=== PATIENT | male | born 1970 | race Caucasian/White ===

== ENCOUNTER → 2019-04-06 14:38 | Outpatient (CLI) | payer OTHER, SELFPAY ==
[2019-02-17 11:20] VITALS: BMI 24.8
[2019-04-06 16:54] LABS: Amphetamine Urine VISTA NEGATIVE (<1000 ng/mL); Barbiturate Urine VISTA NEGATIVE (< 200 ng/mL); Benzodiazepine Urine VISTA NEGATIVE (< 200 ng/mL); Cocaine Urine VISTA NEGATIVE (< 300 ng/mL); Ecstacy Urine VISTA NEGATIVE (< 500 ng/mL); Methadone Urine VISTA NEGATIVE (< 300 ng/mL); PCP Urine VISTA NEGATIVE (< 25 ng/mL); THC Urine VISTA NEGATIVE (< 50 ng/mL); Vista UDS pH Range 7
== END ==
PROVIDERS: Family Provider Family Medicine; PCP Family Medicine; Referring Provider Family Medicine; Visit Provider Family Medicine
DX: F98.8 Other specified behavioral and emotional disorders with onset usually occurring in childhood and adolescence (principal)
CPT/HCPCS: 80307

== ENCOUNTER → 2020-05-18 | Outpatient (CLI) | payer OTHER, SELFPAY ==
[2019-06-15 12:27] VITALS: BMI 24.8
== END | disposition home or self-care (01) ==
LOC: LABSPEC 09:48
PROVIDERS: Visit Provider Dermatology
DX: B35.4 Tinea corporis (principal)
CPT/HCPCS: 87101

== ENCOUNTER → 2021-05-11 10:02 | Outpatient (CLI) | payer OTHER, SELFPAY ==
--- NOTE | 2021-05-11 10:07 | US_ITS ---
INDICATION: THYROMEGALY EXAMINATION: Ultrasound US Thyroid (eg thyroid, parathyroid, parotid) TECHNIQUE: Wan scale and color doppler imaging was performed of the thyroid gland. COMPARISON: None. FINDINGS: RIGHT THYROID LOBE: Mild prominence of the right lobe of the thyroid gland is seen. The right lobe of the thyroid gland demonstrates homogenous echogenicity, unremarkable vascularity with no evidence of masses or nodules. The right lobe of the thyroid gland measures 4.8 x 2.0 x 1.8 cm. LEFT THYROID LOBE: Mild prominence of the left lobe of the thyroid gland is seen. The left lobe of the thyroid gland demonstrates homogenous echogenicity, unremarkable vascularity with no evidence of masses or nodules. The left lobe of the thyroid gland measures 4.7 x 1.7 x 1.6 cm. ISTHMUS: Unremarkable echogenicity of the isthmus. The isthmus measures 0.3 cm in AP diameter.. No thyroid nodules are present. IMPRESSION: Unremarkable thyroid echogenicity with no evidence of masses. Electronically Signed: Jai Bedoya MD at 16:07 EST Tel , Service support , US/Thyroid
== END ==
PROVIDERS: PCP Family Medicine; Referring Provider Family Medicine; Visit Provider Family Medicine
DX: E01.0 Iodine-deficiency related diffuse (endemic) goiter (principal)
CPT/HCPCS: 76536

== ENCOUNTER 2021-11-18 12:46 | Emergency (ER) | payer OTHER, SELFPAY ==
[2021-11-18 12:47] VITALS: BP 134/86; PULSE 71; RESP 14; TEMP 36.6; O2SAT 98; BMI 24.4
--- NOTE | 2021-11-18 12:56 | RAD_ITS ---
EXAM: XR RIGHT RIBS AND AP CHEST, 3 OR MORE VIEWS CLINICAL INDICATION: right rib pain TECHNIQUE: Frontal and oblique views of the right ribs and frontal view of the chest. This report was created using [employer] report [employer] technology. COMPARISON: None. FINDINGS: LUNGS AND PLEURAL SPACES: Unremarkable. No consolidation or edema. No pneumothorax. No effusion. HEART: Unremarkable. Cardiac silhouette not enlarged. MEDIASTINUM: Central airways and mediastinal contour are unremarkable. BONES/JOINTS: Unremarkable. No evidence of displaced rib fractures. RAD/Ribs Uni Min 3V w/PA Chest IMPRESSION: Negative chest and right ribs series. Electronically Signed: Michael Bush MD at 13:41 EDT ,
--- NOTE | 2021-11-18 13:05 | EDS_ITS ---
HPI <SERGIO Bryant - Last Filed: 11/18/21 14:10> History of Present Illness Chief Complaint: Other, Pain/Inj Narrative Narrative: Just prior to arrival patient slipped off his truck and fell onto his right side of ribs onto a piece of metal bar. He states it was about 2 feet. There was no head injury or LOC. He is taking shallow breaths due to pain but has no difficulty breathing. No aspirin or blood thinners PFSH <SERGIO Bryant - Last Filed: 11/18/21 14:10> [facility] Medical History (Updated 11/18/21 @ 13:23 by SERGIO Bryant) ADD (attention deficit disorder) Home Medications cholecalciferol (vitamin D3) 50 mcg (2,000 unit) capsule 50 mcg PO DAILY 08/25/21 [History Last Taken Unknown] dextroamphetamine-amphetamine ER 20 mg 24hr capsule,extend release (Adderall XR) 20 mg PO DAILY 08/25/21 [History Last Taken Unknown] glucosamine XEk-uuv-vqoxtmemspa 500 mg-167 mg-400 mg tablet 1 tab PO TID 08/25/21 [History Last Taken Unknown] lactobacillus combination no.4 3 billion cell capsule (Probiotic) 3,000 mmu cells PO DAILY 08/25/21 [History Last Taken Unknown] multivitamin 1 tab PO DAILY 08/25/21 [History Last Taken Unknown] saw palmetto fruit extract-zinc picolinate 160 mg-15 mg capsule (Saw Friona Extract (with zinc)) cap PO 08/25/21 [History Last Taken Unknown] oxycodone-acetaminophen 5 mg-325 mg tablet (Percocet) See Rx Instructions .Route .COMPLEX PRN pain 3 days #18 tabs 11/18/21 [Rx Last Taken Unknown] Allergy/AdvReac Type Severity Reaction Status Date / Time No Known Allergies Allergy Verified 11/18/21 12:48 Social History Smoking Status: Never smoker ROS <SERGIO Bryant - Last Filed: 11/18/21 14:10> ROS ED ROS Narrative Constitutional: Negative for fever, chills, malaise. Eyes: Negative for visual change. ENT: Negative for sore throat, ear pain, rhinorrhea. CVS: Negative for palpitations, chest pain, syncope. Respiratory: Negative for shortness of breath, cough, orthopnea. GI: Negative for abdominal pain, nausea, vomiting. : Negative for dysuria, hematuria or frequency. Neuro: Negative for headache, motor/sensory dysfunction. Skin: Negative for rash, abscess, or wound. Musc: Positive for rib pain, trauma. Heme: Negative for easy bruising, bleeding, lymphadenopathy. EXAM <SERGIO Bryant - Last Filed: 11/18/21 14:10> Physical Exam Narrative Exam Narrative: CONST: Patient sitting in no acute distress. EYES: Normal inspection. ENT: Normal inspection, moist mucous membranes. NECK: Normal inspection. RESP: No respiratory distress, CTAB. Tender to palpation over right anterior lateral lower ribs with associated abrasions, no deformity or crepitus. CVS: Regular rate and rhythm, no murmur, no gallop. ABD: Soft and nontender, no guarding or rebound, nondistended. Back: Normal inspection, no midline spinal tenderness, no step-offs. SKIN: Color normal, no rash, warm, dry, intact. EXTREMITIES: Normal appearance, no pedal edema. NEURO: Oriented x4. PSYCH: Normal affect. Const Vital Signs: 11/18/21 12:47 11/18/21 12:51 11/18/21 13:41 Temperature 97.8 F 98.9 F Temperature Source Temporal Pulse Rate 71 86 Respiratory Rate 14 14 Respiratory Effort Normal Respiratory Pattern Normal Blood Pressure 134/86 H 132/78 H Blood Pressure Mean 102 Pulse Ox 98 98 Oxygen Delivery Method Room Air <Dr. Romaine Alegria DO - Last Filed: 11/18/21 13:36> Physical Exam Const Vital Signs: 11/18/21 12:47 11/18/21 12:51 11/18/21 13:41 Temperature 97.8 F 98.9 F Temperature Source Temporal Pulse Rate 71 86 Respiratory Rate 14 14 Respiratory Effort Normal Respiratory Pattern Normal Blood Pressure 134/86 H 132/78 H Blood Pressure Mean 102 Pulse Ox 98 98 Oxygen Delivery Method Room Air MDM <SERGIO Bryant - Last Filed: 11/18/21 14:10> [facility] Narrative Medical decision making narrative: Patient had a mechanical fall about 2 feet hitting his ribs on a metal bar. He appears well and nontoxic. Vital signs within normal limits. He has abrasions and tenderness of the right anterior lower ribs. No deformity or crepitus. Normal heart and lung sounds. No tenderness of the abdomen. Rib series x-ray was read as negative per radiologist but according to ED attending review there is a slightly displaced seventh rib fracture and suspected nondisplaced eighth rib fracture. He will be prescribed Percocet and given incentive spirometer and a work note. Discussed the normal course of recovery and he was discharged in stable condition. Diagnoses 1. Rib pain 2. Rib fractures, right 11/17 I performed a history and physical examination of the patient and discussed management plan with the physician medical record assistant. I reviewed the physician medical record assistant's note and agree with the documented findings and plan of care. Patient sustained a fall with right-sided rib pain. Interpretation of the plain films of the rib series is acute minimally displaced fracture of rib. I do not see a pulmonary contusion or pneumothorax.. Patient will have pain medication written for him. Deep breathing discussed with patient. Return if worsening or concerns Romaine Alegria DO, MS Radiography Diagnostic Testing: Clinical Impression(s) from Imaging Studies Ribs w/Chest X-Ray 11/18/21 12:56 IMPRESSION: Negative chest and right ribs series. Electronically Signed: Michael Bush MD at 13:41 EDT , <Dr. Romaine Alegria DO - Last Filed: 11/18/21 13:36> [facility] Narrative Medical decision making narrative: Patient had a mechanical fall about 2 feet hitting his ribs on a metal bar. He appears well and nontoxic. Vital signs within normal limits. He has abrasions and tenderness of the right anterior lower ribs. No deformity or crepitus. Normal heart and lung sounds. No tenderness of the abdomen. Rib series x-ray shows fractures of number Diagnoses 1. Rib pain 2. Rib fractures I performed a history and physical examination of the patient and discussed management plan with the physician medical record assistant. I reviewed the physician medical record assistant's note and agree with the documented findings and plan of care. Patient sustained a fall with right-sided rib pain. Interpretation of the plain films of the rib series is acute minimally displaced fracture of rib. I do not see a pulmonary contusion or pneumothorax.. Patient will have pain medication written for him. Deep breathing discussed with patient. Return if worsening or concerns Romaine Alegria DO, MS Radiography Diagnostic Testing: Clinical Impression(s) from Imaging Studies Ribs w/Chest X-Ray 11/18/21 12:56 IMPRESSION: Negative chest and right ribs series. Electronically Signed: Michael Bush MD at 13:41 EDT , Discharge Plan Triage Chief Complaint: Other, Pain/Inj ED Midlevel Provider: Cass Chauhan ED Provider: Romaine Alegria Dx/Rx/DC Orders Clinical Impression: Closed rib fracture Instructions: ED Rib Fracture Prescriptions: New oxycodone-acetaminophen [Percocet] 5-325 mg tablet See Rx Instructions .ROUTE .COMPLEX PRN (Reason: pain) 3 Days Qty: 18 0RF Rx Instructions: 1 TAB orally as needed q4-6 hours No Action dextroamphetamine-amphetamine [Adderall XR] 20 mg capsule,extended release 24hr 20 mg PO DAILY multivitamin Tablet 1 tab PO DAILY cholecalciferol (vitamin D3) 50 mcg (2,000 unit) capsule 50 mcg PO DAILY glucosamine SYp-lgu-xtbjdswcjw 500-167-400 mg tablet 1 tab PO TID Rx Instructions: give with meal/snack Probiotic 3 billion cell capsule 3,000 mmu cells PO DAILY Rx Instructions: administer with a meal Saw Friona Extract (w-zinc) 160-15 mg capsule PO Primary Care Provider: Aldo Gann Referrals: Aldo Gann MD [Primary Care Provider] - Activity Restrictions/Additional Instructions: You have rib fractures that will heal over time. You can ice the area and take Percocet as needed. After that you can take alternate Tylenol and ibuprofen. Use the incentive spirometer throughout the day to make sure you are expanding your lungs fully. Follow-up with your primary care doctor. Disposition Disposition: Home, Self Care
[2021-11-18 13:41] VITALS: BP 132/78; PULSE 86; RESP 14; TEMP 37.2; O2SAT 98
== END 2021-11-18 13:42 | disposition home or self-care (01) ==
PROVIDERS: Emergency Provider Emergency Medicine; PCP Family Medicine; Visit Provider Emergency Medicine
DX: S22.41XA Multiple fractures of ribs, right side, initial encounter for closed fracture (principal); S20.311A Abrasion of right front wall of thorax, initial encounter; F98.8 Other specified behavioral and emotional disorders with onset usually occurring in childhood and adolescence; Z79.899 Other long term (current) drug therapy; W18.09XA Striking against other object with subsequent fall, initial encounter
CPT/HCPCS: 71101; 99282

== ENCOUNTER → 2021-11-22 | Outpatient (CLI) | payer OTHER, SELFPAY ==
--- NOTE | 2021-11-22 09:20 | RAD_ITS ---
STUDY: X-RAY - BILATERAL RIBS WITH CHEST REASON FOR EXAM: Male, 51 years old. RIB PAIN TECHNIQUE - RIBS: 4 view(s) of the ribs. TECHNIQUE - CHEST: Single PA view of the chest. COMPARISON: Comparison is made with prior examination of 11/18/2021. FINDINGS - RIBS : Normal visualized ribs without a demonstrated fracture. FINDINGS - CHEST: Hyperinflation. Lungs are clear. There is no demonstrated pleural abnormality. Normal size heart. Normal mediastinum and yessi. Normal visualized pulmonary arteries. Normal visualized aortic arch and descending thoracic aorta. Normal visualized thoracic spine. Normal visualized ribs, clavicles, and shoulders. There is no demonstrated abnormality of the visualized soft tissue structures of the upper abdomen. RAD/Ribs Wyatt Min 4V w/PA Chest IMPRESSION: RIBS: Normal x-ray examination of the bilateral ribs. CHEST: Normal x-ray examination of the chest. Electronically Signed: Xavi Robles MD at 14:09 EDT ,
== END | disposition home or self-care (01) ==
LOC: MTRAD 08:49
PROVIDERS: PCP Family Medicine; Referring Provider Family Medicine; Visit Provider Family Medicine
DX: R07.81 Pleurodynia (principal)
CPT/HCPCS: 71111

== ENCOUNTER 2021-11-29 07:37 | Day surgery (SDC) | payer OTHER, SELFPAY ==
[2021-11-29 07:58] VITALS: BP 117/75; PULSE 62; RESP 16; TEMP 36.1; O2SAT 100; BMI 24.4
[2021-11-29] MEDS: Lactated Ringers 1,000 ML 15 ML IV (08:02)
--- NOTE | 2021-11-29 08:11 | HP.PCM_ITS ---
HPI - General General Chief Complaint: Screening colonoscopy HPI Narrative GALO MARTINEZ, is a 51 M who presents for screening colonoscopy. He is a very pleasant 51-year-old gentleman with no significant past medical history. He only takes vitamins for preventative disease. He is not having problems with his bowels. He is not have any chest pain or shortness of breath. He does not have a previous colonoscopy. All of the 16 review of systems negative except as per positive mentioned HPI. [facility] Medical History (Updated 11/27/21 @ 11:32 by Stephy Paulino) ADD (attention deficit disorder) Back pain Dietary restriction Former smoker History of edema Hx of fall Injury of head and neck Migraine headache Wears glasses Home Medications cholecalciferol (vitamin D3) 50 mcg (2,000 unit) capsule 50 mcg PO DAILY 08/25/21 [History Last Taken Unknown] dextroamphetamine-amphetamine ER 20 mg 24hr capsule,extend release (Adderall XR) 20 mg PO DAILY 08/25/21 [History Last Taken Unknown] glucosamine JLd-ioo-xwhmvjklkpa 500 mg-167 mg-400 mg tablet 1 tab PO DAILY 08/25/21 [History Last Taken Unknown] lactobacillus combination no.4 3 billion cell capsule (Probiotic) 3,000 mmu cell s PO DAILY 08/25/21 [History Last Taken Unknown] multivitamin 1 tab PO DAILY 08/25/21 [History Last Taken Unknown] saw palmetto fruit extract-zinc picolinate 160 mg-15 mg capsule (Saw [place] Extract (with zinc)) 1 cap PO DAILY 08/25/21 [History Last Taken Unknown] oxycodone-acetaminophen 5 mg-325 mg tablet (Percocet) See Rx Instructions .Route .COMPLEX PRN pain 3 days #18 tabs 11/18/21 [Rx Last Taken Unknown] amino ac-vit P-Vz-xoyxhxjf-hb9 tablet 1 tab PO DAILY 11/27/21 [History Last Taken Unknown] Allergy/AdvReac Type Severity Reaction Status Date / Time No Known Allergies Allergy Verified 11/29/21 07:58 Surgical History (Updated 11/27/21 @ 11:29 by Stephy Paulino) History of back surgery Hx of anterior cruciate ligament surgery Hx of repair of rotator cuff Hx of tonsillectomy Social History Smoking Status: Never smoker ROS Review of Systems ROS Unobtainable: other Constitutional Constitutional: Denies fatigue, fever(s), poor appetite, weight gain or weight loss ENT HEENT: Denies mouth lesions Cardiovascular Cardiovascular: Denies abdominal bloating, abdominal edema or abdominal pain Respiratory/Chest Respiratory/Chest: Denies change in mental status, change in phlegm color, chest congestion or chest tightness Gastrointestinal Gastrointestinal: Denies belching, bloating, change in bowel habits, change in stool character, chewing difficulty, coffee ground emesis, constipation, cramping, diarrhea, dyspepsia, dysphagia, early satiety, excessive flatus, fecal incontinence, heartburn, hematemesis, hematochezia, hemorrhoids, loose stools, melena, nausea, odynophagia, rectal bleeding, tenesmus, vomiting or weight changes Genitourinary Genitourinary: Denies abdominal discomfort, burning urination or itching Musculoskeletal Musculoskeletal: Reports as per HPI; Denies muscle weakness or myalgias Integumentary Integumentary: Denies jaundice Neurologic Neurologic: Denies lack of coordination or weakness Psychiatric Psychiatric: Denies confusion, depression, memory loss, mood swings, paranoia or suicidal ideation Endocrine Endocrinology: Denies systems reviewed and no addt'l complaints, except as documented Hematologic/Lymphatic Hematologic/Lymphatic: Denies anemia, easy bleeding, easy bruising or lymphadenopathy Allergic/Immunologic Allergic/Immunologic: Denies systems reviewed and no addt'l complaints, except as documented Vital Signs Vital Signs Vital Signs: 11/29/21 07:58 11/29/21 07:58 Temperature 96.9 F L Temperature Source Temporal Pulse Rate 62 Respiratory Rate 16 Respiratory Pattern Normal Blood Pressure 117/75 Blood Pressure Mean 89 Blood Pressure Source Monitor Blood Pressure Position Semi-Fowlers Blood Pressure Location Left Arm Pulse Ox 100 Oxygen Delivery Method Room Air Weight Weight: 180 lb Body Mass Index (BMI) 24.4 Physical Exam Const alert, oriented x3, no apparent distress, healthy appearing and well nourished General Appearance: cooperative, comfortable, well kempt and well developed Orientation / Consciousness: awake and oriented to person HEENT Head and Scalp: normocephalic and atraumatic Face and Sinus: normal facial exam Mouth: oral and palatal mucosa normal Eyes General Eye: normal appearance of both eyes Neck full ROM Lymph Lymphatic: no lymphadenopathy noted Chest inspection of chest normal Resp normal respiratory effort and no use of accessory muscles Cardio regular rate and regular rhythm GI normal to inspection, nondistended, normoactive bowel sounds, soft to palpation, non-tender, non-distended and no masses Auscultation: normoactive bowel sounds Palpation: soft Percussion: normal to percussion Rectal Exam: visual inspection normal and normal sphincter tone no CVA tenderness Back/Spine no CVA tenderness and normal ROM Extremity normal to inspection Peripheral Pulses: Yes pulses 2+ throughout Skin no rashes or lesions noted General Skin Exam: no breakdown, elasticity normal and turgor normal Neuro oriented x3 Motor Exam: strength 5/5 throughout Psych mental status grossly normal Appearance: grossly normal Attitude: calm Activity / Motor Behavior: appropriate eye contact Speech: normal speech Thought Process: normal thought process Thought Content: normal thought content Attention / Concentration: attention grossly intact Memory / Cognition: memory grossly intact Insight: insight good Judgement: judgement good Assessment & Plan Assessment/Plan (1) Encounter for screening for malignant neoplasm of colon: PLAN: He was explained alternatives, risk, benefits including not withstanding bleeding, infection, sepsis, perforation, need for emergent surgery . Have an ASA of 1.
[2021-11-29 09:02] VITALS: BP 117/75; BP 98/74; PULSE 62; RESP 16; TEMP 36.1; O2SAT 100
--- NOTE | 2021-11-29 09:03 | OP.COLON_ITS ---
Patient Name: Maxwell Carrera Procedure Date: 11/29/2021 8:32 AM Date of : 1970 Age: 51 Procedure: Colonoscopy Indications: Screening for colorectal malignant neoplasm Providers: Cordell Mcmahan DO Referring MD: Aldo Gann Medicines: Monitored Anesthesia Care Patient Profile: This is a 51 year old male. Refer to note in patient chart for documentation of history and physical. Last Colonoscopy: more than 10 years ago. Complications: No immediate complications. Procedure: Pre-Anesthesia Assessment: - Prior to the procedure, a History and Physical was performed, and patient medications and allergies were reviewed. The patient is competent. The risks and benefits of the procedure and the sedation options and risks were discussed with the patient. All questions were answered and informed consent was obtained. Patient identification and proposed procedure were verified by the physician in the pre-procedure area. Mental Status Examination: alert and oriented. Airway Examination: normal oropharyngeal airway and neck mobility. Respiratory Examination: clear to auscultation. CV Examination: normal. Prophylactic Antibiotics: The patient does not require prophylactic antibiotics. Prior Anticoagulants: The patient has taken no previous anticoagulant or antiplatelet agents. ASA Grade Assessment: II - A patient with mild systemic disease. After reviewing the risks and benefits, the patient was deemed in satisfactory condition to undergo the procedure. The anesthesia plan was to use moderate sedation / analgesia (conscious sedation). Immediately prior to administration of medications, the patient was re-assessed for adequacy to receive sedatives. The heart rate, respiratory rate, oxygen saturations, blood pressure, adequacy of pulmonary ventilation, and response to care were monitored throughout the procedure. The physical status of the patient was re-assessed after the procedure. After I obtained informed consent, the scope was passed under direct vision. Throughout the procedure, the patient's blood pressure, pulse, and oxygen saturations were monitored continuously. The Colonoscope was introduced through the anus and advanced to the cecum, identified by appendiceal orifice and ileocecal valve. The ileocecal valve, appendiceal orifice, and rectum were photographed. Scope In: 8:42:26 AM Scope Withdrawal Time 0 hours 9 minutes 20 seconds Scope Out: 8:56:41 AM Total Procedure Duration Time 0 hours 14 minutes 15 seconds Findings: The perianal and digital rectal examinations were normal. The colon (entire examined portion) appeared normal. The retroflexed view of the distal rectum and anal verge was normal and showed no anal or rectal abnormalities. Two small-mouthed diverticula were found in the recto-sigmoid colon. Impression: - The entire examined colon is normal. - Diverticulosis in the recto-sigmoid colon. - No specimens collected. Recommendation: - Discharge patient to home. - Resume previous diet. - Continue present medications. - Repeat colonoscopy in 10 years for surveillance. Procedure Code(s): --- Professional --- G0121, Colorectal cancer screening; colonoscopy on individual not meeting criteria for high risk CPT copyright 2017 [employer]. All rights reserved. The codes documented in this report are preliminary and upon java application engineer review may be revised to meet current compliance requirements. Cordell cMmahan DO 11/29/2021 9:02:57 AM This report has been signed electronically. Number of Addenda: 1 Note Initiated On: 11/29/2021 8:32 AM Addendum Number: 1 Addendum Date: 02/14/2022 6:15:49 AM MAC was used as sedation for this procedure. Cordell Mcmahan DO 02/14/2022 6:15:53 AM This report has been signed electronically.
--- NOTE | 2021-11-29 09:04 | OP.CCLET_ITS ---
02/14/2022 Aldo Gann [address] [place] [address] Re : Colonoscopy procedure for Maxwellisac Carrera Dear Dr. Gann This procedure was performed on Monday, November 29, 2021. My impressions and recommendations are as follows: Impressions : - The entire examined colon is normal. - Diverticulosis in the recto-sigmoid colon. - No specimens collected. Recommendations : - Discharge patient to home. - Resume previous diet. - Continue present medications. - Repeat colonoscopy in 10 years for surveillance. My findings are described in the full procedure note, which is enclosed. If I can be of further assistance, please feel free to contact me at . Sincerely, Cordell Friend, 11/29/2021 9:02:57 AM This report has been signed electronically.
[2021-11-29 09:05] VITALS: BP 101/70; BP 117/75; PULSE 58; RESP 16; O2SAT 100
[2021-11-29 09:10] VITALS: BP 102/77; BP 117/75; PULSE 58; RESP 16; O2SAT 100
[2021-11-29 09:15] VITALS: BP 108/77; BP 117/75; PULSE 56; RESP 16; TEMP 36.4; O2SAT 100
[2021-11-29 09:29] VITALS: BP 117/75
== END 2021-11-29 09:31 | disposition home or self-care (01) ==
LOC: EN 07:37 → AC 07:38
PROVIDERS: PCP Family Medicine; Referring Provider Family Medicine; Visit Provider Internal Medicine Gastroenterology
PROC: 0DJD8ZZ Inspection of Lower Intestinal Tract, Via Natural or Artificial Opening Endoscopic (ICD-10-PCS; CPT 45378; principal; 2021-11-29 08:25)
DX: Z12.11 Encounter for screening for malignant neoplasm of colon (principal); K57.30 Diverticulosis of large intestine without perforation or abscess without bleeding; F90.0 Attention-deficit hyperactivity disorder, predominantly inattentive type; Z79.899 Other long term (current) drug therapy
CPT/HCPCS: 45378; J7120; J2405

== ENCOUNTER → 2022-05-31 | Outpatient (CLI) | payer OTHER, SELFPAY ==
[2022-05-31 10:15] LABS: Absolute Lymphocyte Count 1.63 X10^3/uL (0.83-4.51); Absolute Neutrophil Count 2.7 X10^3/uL (2.0-7.7); Basophil# 0.04 X10^3/uL; Basophil% 0.7 % (0-1); Eosinophil# 0.35 X10^3/uL; Eosinophils% 6.4 % (0-5); Hematocrit 46.7 % (40-54); Hemoglobin 15.6 g/dL (13.0-16.5); Lymphocyte # 1.63 X10^3/ul (0.83-4.51); Lymphocyte % 29.9 % (19-41); Mean Corp Hgb Conc 33.4 g/dL (32-36); Mean Corpuscular Hgb 31.5 pg (27.0-32.0); Mean Corpuscular Volume 94.3 fL (80-94); Monocyte# 0.71 X10^3/uL; NRBC Flagged by Analyzer 0 % (0-5); Neutrophil # 2.71 X10^3/uL (2.7-7.7); Neutrophil % 49.8 % (47-70); Platelet Count 261 K/mm3 (150-450); RBC Distribution Width CV 12.2 % (11.6-14.6); RBC Distribution Width SD 42.4 fl (35.1-43.9); Red Blood Count 4.95 M/mm3 (4.6-6.2); White Blood Count 5.5 K/mm3 (4.4-11.0)
[2022-05-31 10:54] LABS: ALB/GLOB Ratio 1.4 RATIO (0.9-2.4); AST(SGOT) 16 U/L (15-37); Alanine Aminotransfer ALT/SGPT 25 U/L (16-61); Albumin, Serum 4.1 g/dL (3.2-5.0); Alkaline Phosphatase 52 U/L (45-117); Anion Gap 7 (5-15); BUN 14 mg/dL (7-18); BUN/Creat Ratio 15.6 RATIO (10-20); Calcium,Total 9.1 mg/dL (8.5-10.1); Chloride 106 mmol/L (98-107); Cholesterol 207 mg/dL (200); EST Glomerular Filtration Rate 95 mL/min (>60); Est Glom Filt Rate - Afr Amer 114 mL/min (>60); Globulin 2.9 g/dL (2.2-4.2); Glucose 81 mg/dL (74-106); High Density Lipoprotein 65 mg/dL; Potassium 4.3 mmol/L (3.5-5.1); Sodium Level 141 mmol/L (136-145); Triglycerides 93 mg/dL; Very Low Density Lipoprotein 19 mg/dL (5-40)
[2022-05-31 10:57] LABS: Vitamin D,25 Hydroxy 55.1 ng/mL
== END | disposition home or self-care (01) ==
LOC: MFPLAB 08:51
PROVIDERS: PCP Family Medicine; Referring Provider Family Medicine; Visit Provider Family Medicine
DX: E78.5 Hyperlipidemia, unspecified (principal); E55.9 Vitamin D deficiency, unspecified
CPT/HCPCS: 36415; 80053; 80061; 82306; 85025

== ENCOUNTER → 2024-02-06 | Outpatient (CLI) | payer OTHER, SELFPAY ==
[2024-02-06 17:31] LABS: Absolute Lymphocyte Count 2.28 X10^3/uL (0.83-4.51); Absolute Neutrophil Count 2.9 X10^3/uL (2.0-7.7); Basophil# 0.03 X10^3/uL; Basophil% 0.5 % (0-1); Eosinophil# 0.33 X10^3/uL; Eosinophils% 5.3 % (0-5); Hematocrit 45.8 % (40-54); Hemoglobin 15.5 g/dL (13.0-16.5); Lymphocyte # 2.28 X10^3/ul (0.83-4.51); Lymphocyte % 36.8 % (19-41); Mean Corp Hgb Conc 33.8 g/dL (32-36); Mean Corpuscular Hgb 31.7 pg (27.0-32.0); Mean Corpuscular Volume 93.7 fL (80-94); Mean Platelet Vol. 8.9 fl (6.2-12.0); Monocyte# 0.63 X10^3/uL; Monocyte% 10.2 % (0-10); NRBC Flagged by Analyzer 0 % (0-5); Neutrophil # 2.91 X10^3/uL (2.7-7.7); Platelet Count 260 K/mm3 (150-450); RBC Distribution Width CV 12.5 % (11.6-14.6); RBC Distribution Width SD 43.2 fl (35.1-43.9); Red Blood Count 4.89 M/mm3 (4.6-6.2); White Blood Count 6.2 K/mm3 (4.4-11.0)
[2024-02-06 18:21] LABS: ALB/GLOB Ratio 1.5 RATIO (0.9-2.4); AST(SGOT) 16 U/L (15-37); Alanine Aminotransfer ALT/SGPT 20 U/L (16-61); Albumin, Serum 4.4 g/dL (3.2-5.0); Alkaline Phosphatase 48 U/L (45-117); Anion Gap 5 (5-15); BUN 11 mg/dL (7-18); BUN/Creat Ratio 10.5 RATIO (10-20); Calcium,Total 9.6 mg/dL (8.5-10.1); Chloride 105 mmol/L (98-107); Cholesterol 204 mg/dL (200); Creatinine, Serum 1.05 mg/dL (0.70-1.30); EST Glomerular Filtration Rate 78 mL/min (>60); Est Glom Filt Rate - Afr Amer 95 mL/min (>60); Globulin 2.9 g/dL (2.2-4.2); Glucose 87 mg/dL (74-106); High Density Lipoprotein 79 mg/dL; Potassium 4.1 mmol/L (3.5-5.1); Protein, Total 7.3 g/dL (6.4-8.2); Sodium Level 138 mmol/L (136-145); Triglycerides 73 mg/dL; Very Low Density Lipoprotein 15 mg/dL (5-40)
== END | disposition home or self-care (01) ==
PROVIDERS: PCP Family Medicine; Referring Provider Family Medicine; Visit Provider Family Medicine
DX: Z00.00 Encounter for general adult medical examination without abnormal findings (principal); Z12.5 Encounter for screening for malignant neoplasm of prostate
CPT/HCPCS: 36415; 80053; 80061; 84443; 85025

== ENCOUNTER → 2024-06-04 | Outpatient (CLI) | payer OTHER, SELFPAY ==
--- NOTE | 2024-06-04 15:48 | RAD_ITS ---
HISTORY: LEFT LOWER LOBE PNEUMONIA. TECHNIQUE: XR Chest 2 Views. COMPARISON: 11/22/2021. FINDINGS: CARDIOMEDIASTINAL BORDERS: Cardiac silhouette within normal limits in size. Mediastinal contour unremarkable. LUNGS: Radiographically clear. PLEURA: No pleural effusion or pneumothorax seen. OSSEOUS STRUCTURES: Cervical spinal fusion hardware noted. Old right ninth rib fracture. RAD/Chest PA and Lateral IMPRESSION: No acute cardiopulmonary process identified. Electronically Signed: Lanette Garcia MD at 13:06 EST ,
[2024-06-04 17:38] LABS: Absolute Lymphocyte Count 1.67 X10^3/uL (0.83-4.51); Absolute Neutrophil Count 3.7 X10^3/uL (2.0-7.7); Basophil# 0.03 X10^3/uL; Basophil% 0.5 % (0-1); Eosinophils% 1.6 % (0-5); Hematocrit 48.9 % (40-54); Hemoglobin 16.1 g/dL (13.0-16.5); Lymphocyte # 1.67 X10^3/ul (0.83-4.51); Lymphocyte % 27.1 % (19-41); Mean Corp Hgb Conc 32.9 g/dL (32-36); Mean Corpuscular Hgb 31.1 pg (27.0-32.0); Mean Corpuscular Volume 94.4 fL (80-94); Mean Platelet Vol. 8.9 fl (6.2-12.0); Monocyte# 0.66 X10^3/uL; Monocyte% 10.7 % (0-10); NRBC Flagged by Analyzer 0 % (0-5); Neutrophil % 59.9 % (47-70); Platelet Count 204 K/mm3 (150-450); RBC Distribution Width SD 41.7 fl (35.1-43.9); Red Blood Count 5.18 M/mm3 (4.6-6.2); White Blood Count 6.2 K/mm3 (4.4-11.0)
== END | disposition home or self-care (01) ==
LOC: MTLAB 15:40
PROVIDERS: PCP Family Medicine
DX: J18.9 Pneumonia, unspecified organism (principal)
CPT/HCPCS: 36415; 71046; 85025